=== PATIENT | male | born 1995 | race African-American/Black ===

== ENCOUNTER 2022-08-30 13:36 | Emergency (ER) | payer OTHER ==
[2022-08-30 14:05] VITALS: TEMP 98.2; BMI 23.0
[2022-08-30] MEDS ORDERED: LACTATED RINGERS SOLUTION 1000 ML INFUS.BAG IV ONE (15:25)
[2022-08-30] MEDS ORDERED: KETOROLAC TROMETHAMINE 30 MG/1 ML VIAL IVPUSH ONE (15:31)
[2022-08-30] MEDS ORDERED: KETOROLAC TROMETHAMINE 30 MG/1 ML VIAL ONE (15:48)
[2022-08-30 16:20] LABS: HEMATOCRIT 42.3 % (35.4-49); HEMOGLOBIN 13.7 GM/dL (11.7-16.9); MCH 27.5 pg (25.7-33.7); MCHC 32.5 g/dl (32.0-35.9); MEAN CELL VOLUME 84.6 fl (80-96); MEAN PLT VOLUME 8.6 fl (7.5-11.1); PLATELET COUNT 192 10^3/uL (134-434); RDW 14.2 % (11.9-15.9); WHITE BLOOD COUNT 9.2 K/mm3 (4.0-10.0)
[2022-08-30 16:37] LABS: ALBUMIN 4.2 g/dl (3.4-5.0); CALCIUM 9.5 mg/dL (8.5-10.1)
[2022-08-30 16:38] LABS: BLOOD UREA NITROGEN 17.8 mg/dL (7-18)
[2022-08-30 16:40] LABS: CREATININE 1.1 mg/dL (0.55-1.3)
[2022-08-30 16:42] LABS: BILIRUBIN,TOTAL 1.2 mg/dL (0.2-1); TOT PROT 7.9 g/dl (6.4-8.2)
[2022-08-30 19:13] LABS: EPI CELLS 10 /uL (0-25.1); HYALINE CASTS 1 /uL (0-3.1); PH,URINE 7.5 (5.0-8.0); URINE APPEARANCE CLOUDY; URINE BACTERIA 13 /uL (0-1359); URINE BILIRUBIN NEGATIVE (NEGATIVE); URINE COLOR YELLOW; URINE GLUCOSE (UA) NEGATIVE (NEGATIVE); URINE KETONE NEGATIVE (NEGATIVE); URINE LEUK ESTERASE TRACE (NEGATIVE); URINE NITRITE NEGATIVE (NEGATIVE); URINE PROTEIN TRACE (NEGATIVE); URINE RBC 1912 /uL (0-23.9); URINE WBC 27 /uL (0-25.8)
[2022-08-30 20:18] VITALS: BP 138/75; PULSE 80; RESP 18
== END 2022-08-30 20:19 | disposition home or self-care (01) ==
LOC: JER 13:36
PROC: 3E033GC Introduction of Other Therapeutic Substance into Peripheral Vein, Percutaneous Approach (ICD-10-PCS; principal; 2022-08-30)
DX: R10.84 Generalized abdominal pain (principal)
CPT/HCPCS: 0241U-QW; 36415; 74176-TC; 80053; 81003; 83690; 85027; 87086; 96374; 99285-25